=== PATIENT | female | born 1955 | race Caucasian/White ===

== ENCOUNTER 2016-11-15 13:32 | Emergency (ER) | payer BC ==
[~2016-11-15 13:32] MED LIST: COZ50 PO; IMITREX100 MG PO; L20 PO; LEXAPRO20 PO; METANX PO; PLAQ200B PO; TOPAMAX25 PO; ULTRAM50 PO
== END 2016-11-15 16:13 | disposition home or self-care (01) ==
LOC: ER 13:32
DX: S09.90XA Unspecified injury of head, initial encounter (principal); Z88.0 Allergy status to penicillin; Z88.2 Allergy status to sulfonamides; Z88.8 Allergy status to other drugs, medicaments and biological substances; Z79.899 Other long term (current) drug therapy; X58.XXXA Exposure to other specified factors, initial encounter
CPT/HCPCS: 70450; 99284